=== PATIENT | female | born 1990 | race Caucasian/White ===

== ENCOUNTER 2024-04-22 15:52 | Inpatient (IN) ==
[2024-04-22] MEDS ORDERED: Lidocaine 1% VIAL 10 MG/ML 30 ML VIAL INJ PRN (17:06)
[2024-04-22 18:00] LABS: ABS Basophils 0.1 10^3/uL (0.0-0.1); ABS Eosinophils 0.1 10^3/uL (0.0-0.5); ABS Lymphocytes 1.9 10^3/uL (1.0-4.8); ABS Monocytes 0.7 10^3/uL (0.0-0.9); ABS Neutrophils 5.9 10^3/uL (1.5-7.6); Eosinophil % 0.9 %; Hematocrit 36.9 % (35-45); Hemoglobin 12.4 g/dL (11.5-14.3); Lymphocyte % 22.4 %; Mean Corpuscular Hemoglobin 28.7 pg (27-33); Mean Corpuscular Hgb Conc 33.5 g/dL (31-36); Mean Corpuscular Volume 85.7 fL (80-97); Mean Platelet Volume 9.5 fL (7.5-11.2); Platelet Count 194 10^3/uL (150-450); Red Blood Count 4.31 10^6/uL (3.63-4.92); Red Cell Distribution Width 15.3 % (12-17); White Blood Count 8.6 10^3/uL (3.8-11.8)
[2024-04-22] MEDS: miSOPROStol 100 mcg TAB VAGINAL ONE (18:07)
[2024-04-22 18:33] LABS: Albumin/Globulin Ratio 1.7 (1-3); Calcium 9.5 mg/dL (8.6-10.3); Creatinine, Serum 0.61 mg/dL (0.51-0.95); Globulin 2.4 g/dL (2-4); Potassium 3.9 mmol/L (3.5-5.0); Total Bilirubin 0.4 mg/dL (0.2-1.0); Total Protein 6.4 g/dL (6.4-8.9); eGFR CKD-EPI 120.2 (>60)
[2024-04-22 18:43] LABS: Urine Creatinine Concentration 158.29 mg/dL (20.00-320.00); Urine TP Creat Ratio 0.3 mg/mg
[2024-04-22 18:54] LABS: Urine Benzodiazepine Screen None Detected (None Detect); Urine Cannabinoids Screen None Detected (None Detect); Urine Opiates Screen None Detected (None Detect)
[2024-04-22] MEDS: Labetalol IV 5 MG/ML 20 ml VIAL IV PUSH ONE (20:40)
[2024-04-22] MEDS: Dinoprostone 10 MG VAG.SUPP VAGINAL ONE (22:36)
[2024-04-22] MEDS: Lidocaine 4% GEL 10 GM TUBE TOPICAL PRN (23:04)
[2024-04-22] MEDS: Insulin NPH 100 units/ml SUBCUT SCH (23:26)
[2024-04-22] MEDS: Lactated Ringers 1000 ml BAG 1,000 ML IV ONE (23:51)
[2024-04-23] MEDS: Prochlorperazine 5 mg/ml 2 ml VIAL (10 mg) IV PRN (04:08)
[2024-04-23] MEDS: Nalbuphine 10 MG/ML 1 ML VIAL IV PRN (04:08)
[2024-04-23] MEDS: Ondansetron 4 mg VIAL 2 MG/ML 2 ml VIAL IV ONE (06:50)
[2024-04-23] MEDS: Oxytocin in LR 20,000 MILLI.UNIT/1,000 ML BAG IV SCH (10:12)
[2024-04-23] MEDS: Lactated Ringers 1000 ml BAG 1,000 ML IV SCH (11:36)
[2024-04-23 17:48] LABS: ABS Lymphocytes 1.1 10^3/uL (1.0-4.8); ABS Monocytes 0.7 10^3/uL (0.0-0.9); ABS Neutrophils 5.3 10^3/uL (1.5-7.6); Eosinophil % 0.5 %; Hematocrit 33.3 % (35-45); Hemoglobin 11.1 g/dL (11.5-14.3); Lymphocyte % 15.4 %; Mean Corpuscular Hemoglobin 28.4 pg (27-33); Mean Corpuscular Hgb Conc 33.4 g/dL (31-36); Mean Corpuscular Volume 85.3 fL (80-97); Mean Platelet Volume 9.7 fL (7.5-11.2); Platelet Count 173 10^3/uL (150-450); Red Blood Count 3.91 10^6/uL (3.63-4.92); Red Cell Distribution Width 15.6 % (12-17); White Blood Count 7.2 10^3/uL (3.8-11.8)
[2024-04-23 18:15] LABS: Albumin 3.5 g/dL (3.5-5.7); Albumin/Globulin Ratio 1.4 (1-3); Creatinine, Serum 0.61 mg/dL (0.51-0.95); Globulin 2.5 g/dL (2-4); Total Bilirubin 0.4 mg/dL (0.2-1.0); eGFR CKD-EPI 120.2 (>60)
[2024-04-23] MEDS: miSOPROStol 100 mcg TAB PO ONE (21:06)
[2024-04-24] MEDS: miSOPROStol 100 mcg TAB PO ONE ×4 (01:16→13:54)
[2024-04-24] MEDS: Witch Hazel PAD JAR TOPICAL ONE (09:50)
[2024-04-24] MEDS: Lidocaine 2% JELLY 6 ML Topical TOPICAL ONE (09:51)
[2024-04-24] MEDS: Dibucaine 1% OINT 28.35 GM TUBE TOPICAL ONE (09:51)
[2024-04-24] MEDS: miSOPROStol 100 mcg TAB ONE (19:00)
[2024-04-24 19:04] LABS: ABS Basophils 0.1 10^3/uL (0.0-0.1); ABS Eosinophils 0.1 10^3/uL (0.0-0.5); ABS Lymphocytes 1.6 10^3/uL (1.0-4.8); ABS Monocytes 0.7 10^3/uL (0.0-0.9); ABS Neutrophils 4.1 10^3/uL (1.5-7.6); ABS Nucleated RBC 0.01 10^3/ul; Eosinophil % 1.7 %; Hematocrit 34.4 % (35-45); Hemoglobin 11.7 g/dL (11.5-14.3); Lymphocyte % 24.5 %; Mean Corpuscular Hgb Conc 34.1 g/dL (31-36); Mean Platelet Volume 9.5 fL (7.5-11.2); Nucleated Red Blood Cells % 0.2 %/100WBC (0.0-0.8); Platelet Count 179 10^3/uL (150-450); Red Blood Count 4.04 10^6/uL (3.63-4.92); Red Cell Distribution Width 15.7 % (12-17); White Blood Count 6.6 10^3/uL (3.8-11.8)
[2024-04-24 19:41] LABS: Albumin 3.7 g/dL (3.5-5.7); Albumin/Globulin Ratio 1.7 (1-3); Calcium 9.2 mg/dL (8.6-10.3); Creatinine, Serum 0.62 mg/dL (0.51-0.95); Globulin 2.2 g/dL (2-4); Potassium 4.1 mmol/L (3.5-5.0); Total Bilirubin 0.4 mg/dL (0.2-1.0); Total Protein 5.9 g/dL (6.4-8.9); eGFR CKD-EPI 119.8 (>60)
[2024-04-24] MEDS: Insulin NPH 100 units/ml SUBCUT SCH (21:03)
[2024-04-24] MEDS: Oxytocin in LR 20,000 MILLI.UNIT/1,000 ML BAG IV SCH (23:11)
[2024-04-25] MEDS: OBEPIDURAL (200 ML) 200 ML EPIDURAL ONE (02:56)
[2024-04-25] MEDS ORDERED: Phenylephrine 40 mcg/mL 10mL (400mcg) SYRINGE IV PUSH PRN ×2 (03:07)
[2024-04-25] MEDS ORDERED: Sodium Citrate/Citric Acid LIQ 15 ML UDC PO PRN (03:07)
[2024-04-25] MEDS: Ondansetron 4 mg VIAL 2 MG/ML 2 ml VIAL IV PRN ×2 (04:09→09:28)
[2024-04-25 04:17] LABS: Urine Appearance Clear; Urine Bilirubin Negative (Negative); Urine Blood 2+ (Negative); Urine Color Light-Yellow; Urine Glucose Negative (Negative); Urine Ketones 1+ (Negative); Urine Nitrite Negative (Negative); Urine Protein 1+ (>=30 mg/dL) (Negative); Urine Urobilinogen Negative (Negative)
[2024-04-25 04:19] LABS: Urine Bacteria Absent /HPF (Absent); Urine Red Blood Cell 3+(>10/hpf) /HPF (0-Trace); Urine Squamous Epithelial Cell Present /HPF (Absent); Urine White Blood Cell Trace(0-5/hpf) /HPF (0-Trace)
[2024-04-25] MEDS ORDERED: Bupivacaine 0.25% SDV PF 10 ML VIAL INJ ONE ×2 (10:49→15:05)
[2024-04-25] MEDS ORDERED: Lidocaine 2% PF 10 ML AMP (OR) ONE (10:49)
[2024-04-25] MEDS: Famotidine IV 10 MG/ML 2 ml VIAL (20 mg) IV SLOW PU ONE (11:10)
[2024-04-25] MEDS: Labetalol IV 5 MG/ML 20 ml VIAL IV PUSH PRN (11:19)
[2024-04-25] MEDS ORDERED: Calcium Gluconate 1 GM/10 ML VIAL (in Pyxis) IV PUSH PRN (11:28)
[2024-04-25] MEDS: Magnesium Sulfate OB PREMIX 4 GM/100 ML BAG IV ONE (11:44)
[2024-04-25] MEDS: Magnesium Sulfate OB PREMIX 40 GM/1,000 ML BAG IVPB SCH (12:04)
[2024-04-25 12:12] LABS: ABS Lymphocytes 1.4 10^3/uL (1.0-4.8); ABS Monocytes 0.8 10^3/uL (0.0-0.9); ABS Neutrophils 6.3 10^3/uL (1.5-7.6); Eosinophil % 0.5 %; Hematocrit 35.3 % (35-45); Hemoglobin 12.1 g/dL (11.5-14.3); Lymphocyte % 16.6 %; Mean Corpuscular Hemoglobin 28.9 pg (27-33); Mean Corpuscular Hgb Conc 34.3 g/dL (31-36); Mean Corpuscular Volume 84.4 fL (80-97); Mean Platelet Volume 9.8 fL (7.5-11.2); Platelet Count 173 10^3/uL (150-450); Red Blood Count 4.18 10^6/uL (3.63-4.92); Red Cell Distribution Width 15.7 % (12-17); White Blood Count 8.6 10^3/uL (3.8-11.8)
[2024-04-25 12:33] LABS: Albumin 3.6 g/dL (3.5-5.7); Albumin/Globulin Ratio 1.6 (1-3); Calcium 8.9 mg/dL (8.6-10.3); Creatinine, Serum 0.68 mg/dL (0.51-0.95); Globulin 2.2 g/dL (2-4); Potassium 3.7 mmol/L (3.5-5.0); Total Bilirubin 0.6 mg/dL (0.2-1.0); Total Protein 5.8 g/dL (6.4-8.9); eGFR CKD-EPI 117.1 (>60)
[2024-04-25] MEDS ORDERED: Morphine PF AMP (0.5MG/ML) 5 MG/10 ML AMP ONE (13:28)
[2024-04-25] MEDS ORDERED: Acetaminophen IV 1 GM/100ML 1,000 MG/100 ML BAG IV ONE (13:32)
[2024-04-25] MEDS ORDERED: Ondansetron 4 mg VIAL 2 MG/ML 2 ml VIAL ONE (13:32)
[2024-04-25] MEDS ORDERED: Oxytocin 10 UNITS/ML 1 ML VIAL ONE (13:32)
[2024-04-25] MEDS ORDERED: fentaNYL 100 mcg/2 ml 50 MCG/ML VIAL ONE (14:38)
[2024-04-25] MEDS ORDERED: Acetaminophen IV 1 GM/100ML 1,000 MG/100 ML BAG IV PRN (15:00)
[2024-04-25] MEDS ORDERED: Ondansetron 4 mg VIAL 2 MG/ML 2 ml VIAL IV PRN (15:00)
[2024-04-25] MEDS ORDERED: Metoclopramide 5 MG/ML VIAL (10 mg) IV PRN (15:00)
[2024-04-25] MEDS ORDERED: Naloxone 0.4 mg VIAL 0.4 mg/ml 1 ml VIAL IV PUSH PRN (15:00)
[2024-04-25] MEDS ORDERED: HYDROmorphone 1 MG/1 ML SYRINGE IV PRN (15:02)
[2024-04-25] MEDS ORDERED: Naloxone 0.4 mg VIAL 0.4 mg/ml 1 ml VIAL IV PRN (15:02)
[2024-04-25] MEDS ORDERED: Glycerin ADULT 2.4 gm SUPP PR PRN (15:36)
[2024-04-25] MEDS ORDERED: Lactated Ringers 1000 ml BAG 1,000 ML IV SCH (16:00)
[2024-04-26] MEDS: Oxytocin in LR 20,000 MILLI.UNIT/1,000 ML BAG IV SCH (04:25)
[2024-04-26 07:02] LABS: ABS Lymphocytes 1.2 10^3/uL (1.0-4.8); ABS Monocytes 0.8 10^3/uL (0.0-0.9); ABS Neutrophils 8.2 10^3/uL (1.5-7.6); ABS Nucleated RBC 0.01 10^3/ul; Eosinophil % 0.4 %; Hematocrit 21.4 % (35-45); Hemoglobin 7.4 g/dL (11.5-14.3); Lymphocyte % 11.6 %; Mean Corpuscular Hemoglobin 29.6 pg (27-33); Mean Corpuscular Hgb Conc 34.8 g/dL (31-36); Mean Platelet Volume 9.4 fL (7.5-11.2); Platelet Count 114 10^3/uL (150-450); Red Blood Count 2.51 10^6/uL (3.63-4.92); Red Cell Distribution Width 15.7 % (12-17); White Blood Count 10.2 10^3/uL (3.8-11.8)
[2024-04-26] MEDS: Witch Hazel PAD JAR TOPICAL PRN (08:16)
[2024-04-26] MEDS: Methylergonovine 0.2 mg AMPULE 1 ml AMP ONE (09:12)
[2024-04-26] MEDS: Carboprost Tromethamine 250 mcg 1 ml VIAL ONE (09:12)
[2024-04-26] MEDS: Dibucaine 1% OINT 28.35 GM TUBE ONE (09:14)
[2024-04-26] MEDS ORDERED: Iron Sucrose 20 MG/ML 5 ML VIAL IV PUSH ONE (10:56)
[2024-04-26] MEDS: Magnesium Sulfate OB PREMIX 40 GM/1,000 ML BAG ONE (12:48)
[2024-04-26] MEDS: Lactated Ringers 1000 ml BAG 1,000 ML IV SCH (12:49)
[2024-04-26] MEDS: Lidocaine 1.5% EPI 1:200,000 30 ML SDV ONE (12:49)
[2024-04-26] MEDS: Lactated Ringers 1000 ml BAG 1,000 ML IV ONE (12:49)
[2024-04-26] MEDS: Phenylephrine 40 mcg/mL 10mL (400mcg) SYRINGE ONE (12:49)
[2024-04-26] MEDS: OBEPIDURAL (200 ML) 200 ML EPIDURAL SCH (12:49)
[2024-04-26] MEDS: Lidocaine 1% MPF 5 ML VIAL ONE (12:49)
[2024-04-26] MEDS: Bupivacaine 0.25% SDV PF 10 ML VIAL INJ ONE (12:50)
[2024-04-26] MEDS: Tranexamic Acid 1 GM/100ML BAG 0 MG/0 ML BAG IV ONE (12:50)
[2024-04-26] MEDS: ceFOXitin 2 GM IVPREMIX 2 GM/50 ML BAG IVPB ONE (12:50)
[2024-04-26] MEDS: Buffered Lidocaine 1% SYRIN 1 ml INTRADERM ONE (12:58)
[2024-04-26] MEDS: Iron Sucrose 200 MG in NS 0.9% 100 ml IVPB ONE (16:51)
[2024-04-27 07:59] LABS: ABS Eosinophils 0.1 10^3/uL (0.0-0.5); ABS Lymphocytes 0.7 10^3/uL (1.0-4.8); ABS Monocytes 0.5 10^3/uL (0.0-0.9); ABS Neutrophils 8.5 10^3/uL (1.5-7.6); Eosinophil % 1.2 %; Hematocrit 19.8 % (35-45); Hemoglobin 6.9 g/dL (11.5-14.3); Lymphocyte % 7.1 %; Mean Corpuscular Hemoglobin 29.6 pg (27-33); Mean Corpuscular Hgb Conc 34.5 g/dL (31-36); Mean Corpuscular Volume 85.6 fL (80-97); Mean Platelet Volume 9.6 fL (7.5-11.2); Platelet Count 132 10^3/uL (150-450); Red Blood Count 2.32 10^6/uL (3.63-4.92); Red Cell Distribution Width 16.2 % (12-17); White Blood Count 9.9 10^3/uL (3.8-11.8)
[2024-04-27 19:46] LABS: ABS Eosinophils 0.2 10^3/uL (0.0-0.5); ABS Lymphocytes 1.1 10^3/uL (1.0-4.8); ABS Monocytes 0.6 10^3/uL (0.0-0.9); ABS Neutrophils 6.8 10^3/uL (1.5-7.6); Eosinophil % 2.2 %; Hematocrit 21.8 % (35-45); Hemoglobin 7.2 g/dL (11.5-14.3); Lymphocyte % 12.8 %; Mean Corpuscular Hemoglobin 28.4 pg (27-33); Mean Corpuscular Hgb Conc 32.8 g/dL (31-36); Mean Corpuscular Volume 86.6 fL (80-97); Platelet Count 140 10^3/uL (150-450); Red Blood Count 2.52 10^6/uL (3.63-4.92); White Blood Count 8.7 10^3/uL (3.8-11.8)
[2024-04-27] MEDS: [UNRECOGNIZED DRUG - OTHER] IV SCH (22:03)
[2024-04-27] MEDS: SODIUM CHLORIDE IV SCH (22:03)
[2024-04-27] MEDS: OXYTOCIN IV SCH (22:03)
[2024-04-28 08:04] VITALS: BP 148/82
== END 2024-04-28 18:30 | disposition home or self-care (01) | DRG 540 ==
LOC: MCHOBOUT 15:52 → MCHOB 17:08
PROVIDERS: ATTEND Obstetrics & Gynecology